=== PATIENT | male | born 1990 | race Caucasian/White ===

== ENCOUNTER 2017-08-17 18:46 | Emergency (ER) | payer SELFPAY ==
[~2017-08-17] VITALS: Ht 193 cm; Wt 98.8 kg
[2017-08-17 19:47] LABS: BASOPHILS # (AUTO) 0.04 x10^3/uL (0-0.1); BASOPHILS % (AUTO) 0 % (0-1); EOSINOPHILS # (AUTO) 0.13 x10^3/uL (0-0.4); EOSINOPHILS % (AUTO) 2 % (1-7); LYMPHOCYTES # (AUTO) 2.19 x10^3/uL (1-3.4); LYMPHOCYTES % (AUTO) 25 % (22-44); MD NO; MEAN CORPUSCULAR HEMOGLOBIN 30.6 pg (27.5-34.5); MEAN CORPUSCULAR HGB CONC 33.7 g/dL (33.2-36.2); MEAN CORPUSCULAR VOLUME 90.7 fL (81-97); MEAN PLATELET VOLUME 7.1 fL (7.4-10.4); MONOCYTES % (AUTO) 9 % (2-9); NEUTROPHILS # (AUTO) 5.75 x10^3/uL (1.8-6.8); NEUTROPHILS % (AUTO) 65 % (42-75); PLATELET COUNT 196 x10^3/uL (130-400); RED BLOOD COUNT 4.39 x10^6/uL (4.38-5.82); RED CELL DISTRIBUTION WIDTH 15.2 % (9.4-14.8)
[2017-08-17] MEDS ORDERED: HYDROmorphone 2 MG/ML, 1ML ONE (19:49)
[2017-08-17] MEDS: HYDROmorphone 1 MG/ML, 1ML IVPush PRN ×2 (19:53→21:07)
[2017-08-17 19:59] LABS: ALANINE AMINOTRANSFERASE 293 U/L (12-78); ALBUMIN 3.9 g/dL (3.4-5.0); ANION GAP 10 mmol/L (5-15); CALCIUM 8.4 mg/dL (8.5-10.1); CHLORIDE 104 mmol/L (98-107)
[2017-08-17 20:01] LABS: ALKALINE PHOSPHATASE 86 U/L (45-117); BILIRUBIN,TOTAL 0.4 mg/dL (0.2-1.0)
[2017-08-17] MEDS ORDERED: ZIPRASIDONE 20 MG INJ IM ONE ×2 (22:30→22:46)
[2017-08-18 01:37] VITALS: BP 129/72
== END 2017-08-18 01:41 | disposition home or self-care (01) ==
LOC: ED 23:59
DX: S06.0X0A Concussion without loss of consciousness, initial encounter (principal); S39.012A Strain of muscle, fascia and tendon of lower back, initial encounter; S09.90XA Unspecified injury of head, initial encounter; G89.11 Acute pain due to trauma; M54.2 Cervicalgia; R10.84 Generalized abdominal pain; V89.2XXA Person injured in unspecified motor-vehicle accident, traffic, initial encounter; Y93.89 Activity, other specified; Y92.89 Other specified places as the place of occurrence of the external cause; Y99.8 Other external cause status
CPT/HCPCS: 36415; 70450; 71045; 72125; 72128; 72131; 72141; 72146; 72148; 72170; 74177; 80053; 85025; 86850; 86900; 96372; 96374; 96376; 99285; J1170; J3486

== ENCOUNTER 2017-08-30 15:42 | Inpatient (IN) | payer MEDICAID, OTHER ==
[~2017-08-30] VITALS: Ht 193 cm; Wt 94.3 kg
[2017-08-30 16:22] LABS: BASOPHILS # (AUTO) 0.05 x10^3/uL (0-0.1); BASOPHILS % (AUTO) 1 % (0-1); EOSINOPHILS # (AUTO) 0.06 x10^3/uL (0-0.4); EOSINOPHILS % (AUTO) 1 % (1-7); LYMPHOCYTES # (AUTO) 1.28 x10^3/uL (1-3.4); LYMPHOCYTES % (AUTO) 15 % (22-44); MD NO; MEAN CORPUSCULAR HEMOGLOBIN 31.1 pg (27.5-34.5); MEAN CORPUSCULAR HGB CONC 34.1 g/dL (33.2-36.2); MEAN CORPUSCULAR VOLUME 91.2 fL (81-97); MEAN PLATELET VOLUME 6.6 fL (7.4-10.4); MONOCYTES # (AUTO) 0.43 x10^3/uL (0.2-0.8); MONOCYTES % (AUTO) 5 % (2-9); NEUTROPHILS # (AUTO) 6.96 x10^3/uL (1.8-6.8); NEUTROPHILS % (AUTO) 79 % (42-75); PLATELET COUNT 455 x10^3/uL (130-400); RED BLOOD COUNT 4.88 x10^6/uL (4.38-5.82); RED CELL DISTRIBUTION WIDTH 15.2 % (9.4-14.8)
[2017-08-30 16:32] LABS: ANION GAP 8 mmol/L (5-15); CALCIUM 8.6 mg/dL (8.5-10.1); CHLORIDE 109 mmol/L (98-107); SALICYLATE LEVEL 2.1 mg/dL (2.8-20.0)
[2017-08-30 16:35] LABS: ACETAMINOPHEN < 2 mcg/mL (10-30); ALANINE AMINOTRANSFERASE 233 U/L (12-78); ALKALINE PHOSPHATASE 74 U/L (45-117); BILIRUBIN,TOTAL 0.8 mg/dL (0.2-1.0); CREATININE 1.18 mg/dL (0.7-1.3); TOTAL PROTEIN 8.8 g/dL (6.4-8.2)
[2017-08-30 16:57] LABS: CULTURE INDICATED? NO; MICROSCOPIC AUTO
[2017-08-30] MEDS ORDERED: SODIUM CHLORIDE 0.9% 1,000ML IVBOLUS ONE (17:00)
[2017-08-30 17:07] LABS: AMPHETAMINE SCREEN, URINE Negative (Negative); BARBITURATE SCREEN, URINE Negative (Negative); BENZODIAZEPINE SCREEN, URINE Negative (Negative); CANNABINOID SCREEN, URINE Positive (Negative); COCAINE SCREEN, URINE Negative (Negative); METHADONE SCREEN, URINE Negative (Negative); OPIATE SCREEN, URINE Negative (Negative)
[2017-08-30 17:08] LABS: ACETONE, SERUM Negative (Negative)
[2017-08-30] MEDS ORDERED: DOCUSATE 100 MG CAPSULE PO PRN (21:00)
[2017-08-30] MEDS ORDERED: ONDANSETRON ODT 4 MG PO PRN (21:00)
[2017-08-30 21:45] LABS: FREE T4 (FREE THYROXINE) 0.87 ng/dL (0.76-1.46); THYROID STIMULATING HORMONE 0.759 mIU/L (0.358-3.740)
[2017-08-31] MEDS ORDERED: ZIPRASIDONE 20 MG INJ IM PRN (16:00)
[2017-08-31 16:44] VITALS: BP 135/81
[2017-08-31 20:38] VITALS: BP 106/58
[2017-09-01 07:50] VITALS: BP 113/77
[2017-09-01 21:07] VITALS: BP 127/73
[2017-09-02 08:20] VITALS: BP 117/64
[2017-09-02 14:14] VITALS: BP 114/71
[2017-09-02] MEDS ORDERED: ACETAMINOPHEN 325 MG TABLET PO PRN (14:30)
[2017-09-02 15:49] LABS: MICROSCOPIC INDICATED
[2017-09-02 16:01] LABS: CULTURE INDICATED? NO
[2017-09-02 19:59] VITALS: BP 113/61
[2017-09-03 08:00] VITALS: BP 118/72
[2017-09-03 20:28] VITALS: BP 136/78
[2017-09-04 07:40] VITALS: BP 120/72
[2017-09-04 19:59] VITALS: BP 134/80
[2017-09-05 08:43] VITALS: BP 119/79
[2017-09-05 19:45] VITALS: BP 102/63
[2017-09-06 08:51] VITALS: BP 138/79
== END 2017-09-06 15:16 | DRG 885 ==
LOC: ED 17:35 → EDIP 20:52 → 3E 08-31 16:22
PROVIDERS: ADMIT Internal Medicine; ATTEND Internal Medicine
DX: F23 Brief psychotic disorder (principal); R45.851 Suicidal ideations; R10.9 Unspecified abdominal pain; F12.90 Cannabis use, unspecified, uncomplicated; F15.10 Other stimulant abuse, uncomplicated; F41.9 Anxiety disorder, unspecified; R74.0 Nonspecific elevation of levels of transaminase and lactic acid dehydrogenase [LDH]; F32.9 Major depressive disorder, single episode, unspecified; F17.210 Nicotine dependence, cigarettes, uncomplicated
CPT/HCPCS: 36415; 74176; 76700; 80053; 80307; 80329; 81001; 82010; 84439; 84443; 85025; 86704; 86705; 86706; 86708; 86709; 86803; 87340; 87521; 96360; Q0162; G0480; J7030

== ENCOUNTER 2017-11-02 13:14 | Emergency (ER) | payer MEDICAID ==
[~2017-11-02] VITALS: Ht 190.5 cm; Wt 84.0 kg
[2017-11-02] MEDS ORDERED: MORPHINE SULFATE 4 MG/ML, 1ML ONE ×2 (14:58→15:49)
[2017-11-02] MEDS ORDERED: ONDANSETRON 2MG/ML, 2ML ONE (14:58)
[2017-11-02 14:59] LABS: BASOPHILS # (AUTO) 0.03 x10^3/uL (0-0.1); BASOPHILS % (AUTO) 0 % (0-1); EOSINOPHILS # (AUTO) 0.03 x10^3/uL (0-0.4); EOSINOPHILS % (AUTO) 0 % (1-7); LYMPHOCYTES # (AUTO) 1.51 x10^3/uL (1-3.4); LYMPHOCYTES % (AUTO) 13 % (22-44); MD NO; MEAN CORPUSCULAR HEMOGLOBIN 30.4 pg (27.5-34.5); MEAN CORPUSCULAR HGB CONC 33.5 g/dL (33.2-36.2); MEAN CORPUSCULAR VOLUME 90.8 fL (81-97); MEAN PLATELET VOLUME 7.1 fL (7.4-10.4); MONOCYTES # (AUTO) 0.66 x10^3/uL (0.2-0.8); MONOCYTES % (AUTO) 6 % (2-9); NEUTROPHILS # (AUTO) 9.24 x10^3/uL (1.8-6.8); NEUTROPHILS % (AUTO) 81 % (42-75); PLATELET COUNT 225 x10^3/uL (130-400); RED BLOOD COUNT 4.55 x10^6/uL (4.38-5.82); RED CELL DISTRIBUTION WIDTH 14.1 % (9.4-14.8)
[2017-11-02] MEDS ORDERED: ONDANSETRON 2MG/ML, 2ML IVPush ONE (15:00)
[2017-11-02 15:05] LABS: ALBUMIN 3.7 g/dL (3.4-5.0); ANION GAP 10 mmol/L (5-15); CALCIUM 8.7 mg/dL (8.5-10.1); CHLORIDE 108 mmol/L (98-107); CREATININE 0.88 mg/dL (0.7-1.3)
[2017-11-02] MEDS: MORPHINE SULFATE 4 MG/ML, 1ML IVPush PRN ×2 (15:05→16:20)
[2017-11-02] MEDS ORDERED: LORazepam 2 MG/ML, 1ML ONE (17:38)
[2017-11-02] MEDS ORDERED: LORazepam 2 MG/ML, 1ML IVPush ONE (18:00)
[2017-11-02] MEDS ORDERED: ACETAMINOPHEN 500 MG TABLET PO ONE (19:00)
[2017-11-02] MEDS ORDERED: HYDROmorphone 1 MG/ML, 1ML IV ONE (19:00)
[2017-11-02] MEDS ORDERED: ACETAMINOPHEN 500 MG TABLET ONE (19:40)
[2017-11-02] MEDS ORDERED: HYDROmorphone 2 MG/ML, 1ML ONE (19:40)
[2017-11-02 20:01] VITALS: BP 118/74
== END 2017-11-02 20:06 | disposition home or self-care (01) ==
LOC: ED 18:27
DX: M54.2 Cervicalgia (principal); M54.6 Pain in thoracic spine; M25.552 Pain in left hip; Z88.8 Allergy status to other drugs, medicaments and biological substances
CPT/HCPCS: 36415; 71045; 72020; 72050; 72072; 72125; 72128; 72131; 72141; 72170; 73030; 73552; 80048; 82040; 85025; 93005; 96374; 96375; 96376; 99285; J1170; J2060; J2405